=== PATIENT | female | born 1935 | race Two or more races ===

== ENCOUNTER 2016-08-24 23:38 | Emergency (ER) | payer MEDICARE, OTHER ==
[~2016-08-24] VITALS: Ht 160 cm; Wt 73.9 kg
[~2016-08-24 23:38] MED LIST: ACETTAB85 PO; ASPI-231 PO; ATOR20TA PO; Atenolol; BIMA0.038 OP; CALC-400 OR; CILO100T PO; CYAN100042 PO; CYCL0.05 OP; FLUT500M2 IN; LEVAAER4 IN; METF-489 PO; NIAC500T13 PO; OMEG100062 PO; Singular PO; VERA180C2 PO
[2016-08-25 02:58] VITALS: BP 150/69
[2016-08-25] MEDS ORDERED: TETANUS-DIPTH-ACEL PERTUSSIS 0.5ML SYRG IM ONE (05:00)
== END 2016-08-25 05:17 | disposition home or self-care (01) ==
LOC: ER 23:53
DX: S61.212A Laceration without foreign body of right middle finger without damage to nail, initial encounter (principal); J44.9 Chronic obstructive pulmonary disease, unspecified; E11.9 Type 2 diabetes mellitus without complications; E78.5 Hyperlipidemia, unspecified; Z95.0 Presence of cardiac pacemaker; Z79.899 Other long term (current) drug therapy; W22.8XXA Striking against or struck by other objects, initial encounter; Y93.89 Activity, other specified; Y99.8 Other external cause status; Y92.89 Other specified places as the place of occurrence of the external cause
CPT/HCPCS: 90471; 90715

== ENCOUNTER 2017-04-11 15:23 | Inpatient (IN) | payer MEDICARE, OTHER ==
[~2017-04-11] VITALS: Ht 160 cm; Wt 70.5 kg
[2017-04-11 16:34] LABS: Basophils # (auto) 0.1 uL; Basophils % (auto) 0.6 % (0.0-2.0); Eosinophils # (auto) 0 uL; Hematocrit 44.5 % (36.0-46.0); Hemoglobin 14.6 g/dL (12.2-16.2); Lymphocytes # (auto) 1.2 uL; Mean Corpuscular Hemoglobin 29.4 pg (28.0-32.0); Mean Corpuscular Hgb Conc. 32.9 g/dL (32.0-36.0); Mean Corpuscular Volume 89.3 fL (80.0-100.0); Monocytes # (auto) 0.7 uL; Monocytes % (auto) 3.5 % (0.0-12.0); Neutrophils # (auto) 17.3 uL; Neutrophils % (auto) 89.9 % (37.0-80.0); Platelet Count (auto) 306 10^3/uL (140-450); Red Blood Cells 4.98 10^6/uL (4.0-5.20); Red Cell Distribution Width 14.6 % (11.8-14.3); White Blood Cell 19.2 10^3/uL (4.4-10.8)
[2017-04-11 16:47] LABS: Albumin 3.4 g/dL (3.4-5.0); BUN/Creatinine Ratio 26.4; Calcium 9.1 mg/dL (8.5-10.1)
[2017-04-11 16:50] LABS: Bilirubin, Total 0.8 mg/dL (0.2-1.0); Total Protein 7.4 g/dL (6.4-8.2)
[2017-04-11] MEDS ORDERED: SODIUM CHLORIDE 0.9% 1,000 ML IV ONE (18:19)
[2017-04-11] MEDS ORDERED: ALBUTEROL SULF 2.5 MG/0.5ML(0.5%) NEB SOLN HHN ONE (18:30)
[2017-04-11] MEDS ORDERED: IPRATROPIUM BROM 0.5 MG/2.5ML INH SOL HHN ONE (18:30)
[2017-04-11] MEDS ORDERED: methylPREDNISolone SOD SUCC 125 MG/2 ML VL IV ONE (18:30)
[2017-04-11] MEDS ORDERED: LEVOFLOXACIN 500MG 100 ML IV ONE (18:30)
[2017-04-11 19:34] LABS: Magnesium 2.1 mg/dL (1.6-2.6)
[2017-04-11] MEDS ORDERED: HYDROcodone-ACET 5/325MG TAB PO PRN (21:00)
[2017-04-11] MEDS ORDERED: LORazepam 0.5 MG TAB PO PRN (21:00)
[2017-04-11] MEDS ORDERED: MORPHINE SULFATE 4 MG/ML SYR/VIAL IV PRN (21:00)
[2017-04-11] MEDS ORDERED: ONDANSETRON HCL 4 MG/2 ML VIAL IV PRN (21:00)
[2017-04-11] MEDS ORDERED: ACETAMINOPHEN 500 MG TAB PO PRN (21:00)
[2017-04-11] MEDS ORDERED: TEMAZEPAM 15 MG CAP PO PRN (21:00)
[2017-04-11] MEDS: DOXYCYCLINE HYC 100MG/250ML 250 ML IV SCH (21:46)
[2017-04-11 22:00] VITALS: BP 103/45
[2017-04-11 22:30] VITALS: BP 103/45
[2017-04-11] MEDS: ATORVASTATIN 20 MG TAB PO SCH (23:04)
[2017-04-12 02:10] VITALS: BP 103/45
[2017-04-12 05:55] VITALS: BP 114/46
[2017-04-12] MEDS: IPRATROPIUM BROM 0.5 MG/2.5ML INH SOL NEB SCH ×6 (07:00→22:20)
[2017-04-12] MEDS: ALBUTEROL SULF 2.5 MG/0.5ML(0.5%) NEB SOLN NEB SCH ×6 (07:00→22:20)
[2017-04-12 08:13] LABS: Hematocrit 39.1 % (36.0-46.0); Hemoglobin 12.8 g/dL (12.2-16.2); Mean Corpuscular Hemoglobin 29.5 pg (28.0-32.0); Mean Corpuscular Hgb Conc. 32.7 g/dL (32.0-36.0); Mean Corpuscular Volume 90.1 fL (80.0-100.0); Platelet Count (auto) 248 10^3/uL (140-450); Red Blood Cells 4.34 10^6/uL (4.0-5.20); Red Cell Distribution Width 14.7 % (11.8-14.3); White Blood Cell 20.9 10^3/uL (4.4-10.8)
[2017-04-12 08:23] LABS: Urine Bacteria NONE SEEN /hpf (None Seen); Urine Blood Negative /uL (Negative); Urine Hyaline Cast FEW /lpf (0 - 2); Urine Mucus FEW (None Seen); Urine Specific Gravity 1.021 (1.001-1.035); Urine WBC 1 /hpf (0 - 5)
[2017-04-12 08:32] LABS: Band Neutrophils % (manual) 0
[2017-04-12 08:33] LABS: Basophils % (manual) 0 (0.0-2.0); Blast Cells 0; Eosinophils % (manual) 0 (0-7); Metamyelocytes % 0; Myelocytes % 0; Promyelocytes % 0; Reactive Lymphocytes 0
[2017-04-12 08:34] LABS: Calcium 8.4 mg/dL (8.5-10.1); Potassium 4.1 mmol/L (3.5-5.1)
[2017-04-12 09:00] VITALS: BP 113/49
[2017-04-12] MEDS: ASPirin-EC 81 mg tab PO SCH (09:29)
[2017-04-12] MEDS: VERAPAMIL HCL 180mg SR tab PO SCH (09:29)
[2017-04-12] MEDS: DOXYCYCLINE HYC 100MG/250ML 250 ML IV SCH (09:30)
[2017-04-12] MEDS: FUROSEMIDE 40 MG/4 ML VIAL IV SCH (10:00)
[2017-04-12] MEDS ORDERED: FUROSEMIDE 20 MG TAB PO SCH (10:00)
[2017-04-12 11:26] LABS: Lymphocytes % (manual) 3 (10.0-50.0); Monocytes % (manual) 1 (0-12)
[2017-04-12 13:00] VITALS: BP 127/86
[2017-04-12] MEDS ORDERED: PANTOPRAZOLE 40 MG TAB PO ONE (14:00)
[2017-04-12] MEDS ORDERED: methylPREDNISolone SOD SUCC 40 MG/ML VL IV ONE (14:00)
[2017-04-12] MEDS ORDERED: DEXTROSE (50%) 50ML SYRG IV PRN (14:00)
[2017-04-12] MEDS ORDERED: AZITHROMYCIN 500MG/ 250ML 250 ML IV ONE (14:15)
[2017-04-12] MEDS ORDERED: ENOXAPARIN SOD 40 MG/0.4 ML SYRINGE SC ONE (14:15)
[2017-04-12] MEDS ORDERED: cefTRIAXone 1GM/10ml IVPUSH 10 ML IV ONE (14:15)
[2017-04-12] MEDS ORDERED: CYCL0.05 EACHEYE (16:02)
[2017-04-12] MEDS ORDERED: BRIN1SUS6 OP (16:02)
[2017-04-12] MEDS ORDERED: BIMA0.01 EACHEYE (16:02)
[2017-04-12 17:00] VITALS: BP 118/53
[2017-04-12] MEDS: InsuLIN REG 1unit/0.01ml Soln (100units/ml) SC SCH ×2 (17:00→22:10)
[2017-04-12] MEDS: ACCU-CHEK COMFORT CURVE STRIP VI SCH ×2 (17:00→22:11)
[2017-04-12] MEDS: BUDESONIDE (INHALATION) 0.5 MG/2 ML NEB NEB SCH (18:29)
[2017-04-12] MEDS: methylPREDNISolone SOD SUCC 125 MG/2 ML VL IV SCH (22:09)
[2017-04-12] MEDS: ATORVASTATIN 20 MG TAB PO SCH (22:10)
[2017-04-13] MEDS: IPRATROPIUM BROM 0.5 MG/2.5ML INH SOL NEB SCH ×6 (02:42→22:04)
[2017-04-13] MEDS: ALBUTEROL SULF 2.5 MG/0.5ML(0.5%) NEB SOLN NEB SCH ×6 (02:42→22:04)
[2017-04-13 06:00] VITALS: BP 107/53
[2017-04-13] MEDS: BUDESONIDE (INHALATION) 0.5 MG/2 ML NEB NEB SCH ×2 (06:13→22:05)
[2017-04-13 06:44] LABS: Basophils # (auto) 0 uL; Eosinophils # (auto) 0 uL; Hematocrit 39.5 % (36.0-46.0); Lymphocytes # (auto) 0.5 uL; Mean Corpuscular Hemoglobin 29.7 pg (28.0-32.0); Monocytes # (auto) 0.2 uL; Monocytes % (auto) 1.5 % (0.0-12.0); Neutrophils # (auto) 15.6 uL; Neutrophils % (auto) 95.5 % (37.0-80.0); Platelet Count (auto) 269 10^3/uL (140-450); Red Blood Cells 4.39 10^6/uL (4.0-5.20); Red Cell Distribution Width 14.6 % (11.8-14.3); White Blood Cell 16.4 10^3/uL (4.4-10.8)
[2017-04-13] MEDS: ACCU-CHEK COMFORT CURVE STRIP VI SCH ×4 (06:48→22:20)
[2017-04-13] MEDS: InsuLIN REG 1unit/0.01ml Soln (100units/ml) SC SCH ×4 (06:48→22:39)
[2017-04-13 06:56] LABS: BUN/Creatinine Ratio 42.4; Calcium 8.7 mg/dL (8.5-10.1); Magnesium 2.6 mg/dL (1.6-2.6); Potassium 3.7 mmol/L (3.5-5.1)
[2017-04-13 08:30] VITALS: BP 105/63
[2017-04-13] MEDS: methylPREDNISolone SOD SUCC 125 MG/2 ML VL IV SCH ×2 (08:44→22:19)
[2017-04-13] MEDS: cefTRIAXone 1GM/10ml IVPUSH 10 ML IV SCH (08:45)
[2017-04-13] MEDS: FUROSEMIDE 40 MG/4 ML VIAL IV SCH (08:55)
[2017-04-13] MEDS: AZITHROMYCIN 500MG/ 250ML 250 ML IV SCH (08:55)
[2017-04-13] MEDS: ENOXAPARIN SOD 40 MG/0.4 ML SYRINGE SC SCH (08:56)
[2017-04-13] MEDS: PANTOPRAZOLE 40 MG TAB PO SCH (08:56)
[2017-04-13] MEDS: ASPirin-EC 81 mg tab PO SCH (08:56)
[2017-04-13] MEDS: VERAPAMIL HCL 180mg SR tab PO SCH (11:27)
[2017-04-13 12:30] VITALS: BP 109/53
[2017-04-13] MEDS ORDERED: POTASSIUM CHL 20 Meq TABLET PO ONE (13:30)
[2017-04-13 16:00] VITALS: BP 120/56
[2017-04-13] MEDS: ATORVASTATIN 20 MG TAB PO SCH (22:20)
[2017-04-13 22:42] VITALS: BP 117/52
[2017-04-14] VITALS (7 sets, daily range): BP systolic 114–132; BP diastolic 52–84
[2017-04-14] MEDS: IPRATROPIUM BROM 0.5 MG/2.5ML INH SOL NEB SCH ×6 (02:22→22:00)
[2017-04-14] MEDS: ALBUTEROL SULF 2.5 MG/0.5ML(0.5%) NEB SOLN NEB SCH ×6 (02:22→22:00)
[2017-04-14] MEDS: BUDESONIDE (INHALATION) 0.5 MG/2 ML NEB NEB SCH ×2 (06:28→22:00)
[2017-04-14] MEDS: ACCU-CHEK COMFORT CURVE STRIP VI SCH ×4 (06:42→22:20)
[2017-04-14] MEDS: InsuLIN REG 1unit/0.01ml Soln (100units/ml) SC SCH ×4 (06:43→22:00)
[2017-04-14 07:15] LABS: BUN/Creatinine Ratio 55.4; Calcium 8.7 mg/dL (8.5-10.1); Potassium 3.7 mmol/L (3.5-5.1)
[2017-04-14 07:21] LABS: Basophils # (auto) 0 uL; Basophils % (auto) 0.1 % (0.0-2.0); Eosinophils # (auto) 0 uL; Hematocrit 41.3 % (36.0-46.0); Hemoglobin 13.5 g/dL (12.2-16.2); Lymphocytes # (auto) 0.4 uL; Lymphocytes % (auto) 3.1 % (10.0-50.0); Mean Corpuscular Hemoglobin 29.4 pg (28.0-32.0); Mean Corpuscular Hgb Conc. 32.6 g/dL (32.0-36.0); Mean Corpuscular Volume 90.2 fL (80.0-100.0); Monocytes # (auto) 0.3 uL; Monocytes % (auto) 2.7 % (0.0-12.0); Neutrophils # (auto) 10.7 uL; Neutrophils % (auto) 94.1 % (37.0-80.0); Nucleated Red Blood Cells % 0.1 %; Platelet Count (auto) 294 10^3/uL (140-450); Red Blood Cells 4.58 10^6/uL (4.0-5.20); Red Cell Distribution Width 14.3 % (11.8-14.3); White Blood Cell 11.4 10^3/uL (4.4-10.8)
[2017-04-14] MEDS: cefTRIAXone 1GM/10ml IVPUSH 10 ML IV SCH (09:00)
[2017-04-14] MEDS: AZITHROMYCIN 500MG/ 250ML 250 ML IV SCH (09:35)
[2017-04-14] MEDS: methylPREDNISolone SOD SUCC 125 MG/2 ML VL IV SCH ×2 (09:36→22:11)
[2017-04-14] MEDS: VERAPAMIL HCL 180mg SR tab PO SCH (09:37)
[2017-04-14] MEDS: ASPirin-EC 81 mg tab PO SCH (09:37)
[2017-04-14] MEDS: ENOXAPARIN SOD 40 MG/0.4 ML SYRINGE SC SCH (09:38)
[2017-04-14] MEDS: PANTOPRAZOLE 40 MG TAB PO SCH (09:38)
[2017-04-14] MEDS ORDERED: guaiFENesin-DM 100/10mg/5ml SYR PO PRN (12:15)
[2017-04-14] MEDS: ATORVASTATIN 20 MG TAB PO SCH (22:12)
[2017-04-15] MEDS: ALBUTEROL SULF 2.5 MG/0.5ML(0.5%) NEB SOLN NEB SCH ×4 (00:47→14:12)
[2017-04-15] MEDS: IPRATROPIUM BROM 0.5 MG/2.5ML INH SOL NEB SCH ×4 (00:47→14:12)
[2017-04-15 05:00] VITALS: BP 141/74
[2017-04-15] MEDS: InsuLIN REG 1unit/0.01ml Soln (100units/ml) SC SCH ×2 (06:10→15:00)
[2017-04-15] MEDS: ACCU-CHEK COMFORT CURVE STRIP VI SCH ×2 (06:11→11:30)
[2017-04-15 06:59] LABS: Basophils # (auto) 0 uL; Eosinophils # (auto) 0 uL; Hemoglobin 13.5 g/dL (12.2-16.2); Lymphocytes # (auto) 0.3 uL; Lymphocytes % (auto) 4.5 % (10.0-50.0); Mean Corpuscular Hemoglobin 29.5 pg (28.0-32.0); Mean Corpuscular Hgb Conc. 32.8 g/dL (32.0-36.0); Mean Corpuscular Volume 89.9 fL (80.0-100.0); Monocytes # (auto) 0.2 uL; Monocytes % (auto) 2.5 % (0.0-12.0); Neutrophils # (auto) 7.1 uL; Nucleated Red Blood Cells % 0.1 %; Platelet Count (auto) 265 10^3/uL (140-450); Red Blood Cells 4.57 10^6/uL (4.0-5.20); Red Cell Distribution Width 14.4 % (11.8-14.3); White Blood Cell 7.7 10^3/uL (4.4-10.8)
[2017-04-15 07:44] LABS: Calcium 8.6 mg/dL (8.5-10.1); Potassium 4.3 mmol/L (3.5-5.1)
[2017-04-15 08:00] VITALS: BP 124/67
[2017-04-15] MEDS: cefTRIAXone 1GM/10ml IVPUSH 10 ML IV SCH (09:33)
[2017-04-15] MEDS: ENOXAPARIN SOD 40 MG/0.4 ML SYRINGE SC SCH (10:00)
[2017-04-15] MEDS: AZITHROMYCIN 500MG/ 250ML 250 ML IV SCH (10:03)
[2017-04-15] MEDS: PANTOPRAZOLE 40 MG TAB PO SCH (10:06)
[2017-04-15] MEDS: methylPREDNISolone SOD SUCC 125 MG/2 ML VL IV SCH (10:06)
[2017-04-15] MEDS: ASPirin-EC 81 mg tab PO SCH (10:06)
[2017-04-15] MEDS: VERAPAMIL HCL 180mg SR tab PO SCH (10:07)
[2017-04-15] MEDS: BUDESONIDE (INHALATION) 0.5 MG/2 ML NEB NEB SCH (10:15)
[2017-04-15] MEDS ORDERED: SACC250C PO (12:04)
[2017-04-15] MEDS ORDERED: LEVO750T2 PO (12:04)
[2017-04-15 13:00] VITALS: BP 129/54
== END 2017-04-15 15:20 | disposition home health service (06) | DRG 871 ==
LOC: ER 15:23 → TELE 15:24 → TELE-WESTW 22:21
PROVIDERS: ADMIT Nurse Practitioner Family; ATTEND Internal Medicine
PROC: 5A09357 Assistance with Respiratory Ventilation, Less than 24 Consecutive Hours, Continuous Positive Airway Pressure (ICD-10-PCS; principal; 2017-04-14)
DX: A41.9 Sepsis, unspecified organism (principal); J18.1 Lobar pneumonia, unspecified organism; J96.21 Acute and chronic respiratory failure with hypoxia; I11.0 Hypertensive heart disease with heart failure; I49.5 Sick sinus syndrome; I50.32 Chronic diastolic (congestive) heart failure; J44.0 Chronic obstructive pulmonary disease with (acute) lower respiratory infection; J44.1 Chronic obstructive pulmonary disease with (acute) exacerbation; G47.33 Obstructive sleep apnea (adult) (pediatric); E78.5 Hyperlipidemia, unspecified; E11.9 Type 2 diabetes mellitus without complications; Z95.0 Presence of cardiac pacemaker; Z87.891 Personal history of nicotine dependence; Z90.710 Acquired absence of both cervix and uterus; Z90.49 Acquired absence of other specified parts of digestive tract
CPT/HCPCS: 36415; 36600; 71046; 80048; 80053; 80061; 81001; 82805; 82962; 83036; 83605; 83735; 83880; 84484; 85007; 85025; 85027; 87040; 87070; 87205; 93005; 94640; 94660; 96361; 96365; 96375; J1815; J1956; J3490